=== PATIENT | male | born 1980 | race Caucasian/White ===

== ENCOUNTER 2017-03-18 08:29 | Emergency (ER) | payer OTHER ==
--- NOTE | 2017-03-18 08:45 | EDM.PDOC ---
ED HPI GENERAL MEDICAL PROBLEM - General Chief Complaint: Skin Complaint Stated Complaint: RIGHT MIDDLE FINGER NAIL TORN OFF Time Seen by Provider: 03/18/17 08:44 Source of Information: Reports: Patient - History of Present Illness INITIAL COMMENTS - FREE TEXT/NARRATIVE: HISTORY AND PHYSICAL: History of present illness: [Patient smashed his right third digit prior to , he has not been seen by a medical provider, his nail was lifting today needed like her remove it is just hanging on by a the lateral edge essentially No fever nausea vomiting chills sweats Is not sought medical treatment prior No fever nausea vomiting chills sweats] Review of systems: As per history of present illness and below otherwise all systems reviewed and negative. Past medical history: As per history of present illness and as reviewed below otherwise noncontributory. Surgical history: As per history of present illness and as reviewed below otherwise noncontributory. Social history: No reported history of drug or alcohol abuse. Family history: As per history of present illness and as reviewed below otherwise noncontributory. Physical exam: HEENT: Atraumatic, normocephalic, pupils reactive, negative for conjunctival pallor or scleral icterus, mucous membranes moist, throat clear, neck supple, nontender, trachea midline. Lungs: Clear to auscultation, breath sounds equal bilaterally, chest nontender. Heart: S1S2, regular, negative for clicks, rubs, or JVD. Abdomen: Soft, nondistended, nontender. Negative for masses or hepatosplenomegaly. Negative for costovertebral tenderness. Pelvis: Stable nontender. Genitourinary: Deferred. Rectal: Deferred. Extremities: Atraumatic, negative for cords or calf pain. Neurovascular unremarkable. Neuro: Awake, alert, oriented. Cranial nerves II through XII unremarkable. Cerebellum unremarkable. Motor and sensory unremarkable throughout. Exam nonfocal. Right hand unaffected above the wrist nail was lifting on the third digit her swelling of the distal phalanx mild redness and tenderness no fluctuance, entire limb is neurovascularly intact Diagnostics: [Right third digit ] Therapeutics: [Keflex 500 mg by mouth twice a day #20 no refill follow-up with [facility] Call for an appointment Digital digital block performed 1% lidocaine no epinephrine 2 mL Patient declines any hand intervention he states that he likely will not follow- up however we will give him information for follow-up with Makayla Kirby md Splint applied by nurse Bandaging Neosporin Telfa bandaging ] Impression: [Distal tuft fracture right third digit Closed lesion] Nail removed without complication or complaint Definitive disposition and diagnosis as appropriate pending reevaluation and review of above. R 3rd Finger Pain Score (Numeric/FACES): 7 - Related Data Allergies Allergy/AdvReac Type Severity Reaction Status Date / Time No Known Allergies Allergy Verified 03/18/17 08:39 Home Meds: Home Meds . [No Known Home Meds] 03/18/17 [History] Past Medical History - Past Health History Medical/Surgical History: Denies Medical/Surgical History - Past Surgical History GI Surgical History: Reports: Appendectomy Social & Family History - Family History Family Medical History: Noncontributory - Tobacco Use Smoking Status *Q: Current Every Day Smoker Years of Tobacco use: 10 Packs/Tins Daily: 1 - Caffeine Use Caffeine Use: Reports: Energy Drinks, Soda - Alcohol Use Days Per Week of Alcohol Use: 7 Number of Drinks Per Day: 8 Total Drinks Per Week: 56 - Recreational Drug Use Recreational Drug Use: Yes Recreational Drug Type: Reports: Marijuana/Hashish Recreational Drug Use Frequency: Weekly ED ROS GENERAL - Review of Systems Review Of Systems: ROS reveals no pertinent complaints other than HPI. ED EXAM, SKIN/RASH Exam: See Below Course - Vital Signs Last Recorded V/S: Last Vital Signs Temp 98.1 F 03/18/17 08:37 Pulse 88 03/18/17 08:37 Resp 18 03/18/17 08:37 BP 118/80 03/18/17 08:37 Pulse Ox 100 03/18/17 08:37 - Orders/Labs/Meds Meds: Medications Discontinued Medications Generic Name Dose Route Start Last Admin Trade Name Freq PRN Reason Stop Dose Admin Lidocaine HCl 20 ml 03/18/17 08:54 Xylocaine 1% INJECT 03/18/17 08:55 ONETIME ONE Departure - Departure Time of Disposition: 09:50 Disposition: Home, Self-Care 01 Condition: Good Clinical Impression: Closed fracture of tuft of distal phalanx of finger - Discharge Information Referrals: PCP,None [Primary Care Provider] - Forms: ED Department Discharge Additional Instructions: Medication as prescribed Splint applied by nurse Neosporin Telfa bandaging Follow-up with hand specialist, call number below for appointment to to arrange appropriate follow-up [facility] [address] [place] [address], [address] [place] [address] The following information is given to patients seen in the emergency department who are being discharged to home. This information is to outline your options for follow-up care. We provide all patients seen in our emergency department with a follow-up referral. The need for follow-up, as well as the timing and circumstances, are variable depending upon the specifics of your emergency department visit. If you don't have a primary care physician on staff, we will provide you with a referral. We always advise you to contact your personal physician following an emergency department visit to inform them of the circumstance of the visit and for follow-up with them and/or the need for any referrals to a consulting specialist. The emergency department will also refer you to a specialist when appropriate. This referral assures that you have the opportunity for follow-up care with a specialist. All of these measure are taken in an effort to provide you with optimal care, which includes your follow-up. Under all circumstances we always encourage you to contact your private physician who remains a resource for coordinating your care. When calling for follow-up care, please make the office aware that this follow-up is from your recent emergency room visit. If for any reason you are refused follow-up, please contact the [facility] emergency department at and asked to speak to the emergency department charge nurse.
[2017-03-18] MEDS ORDERED: Lidocaine 1% 20 ML MDV INJECT ONE (08:54)
--- NOTE | 2017-03-18 09:08 | CR ---
Right third digit Clinical history: Trauma Comparison: None Findings: There is a fracture of the distal phalanx with slight oblique orientation to the long axis of the digit. Impression: Fracture of the distal phalangeal tuft
== END 2017-03-18 10:09 | disposition home or self-care (01) ==
LOC: MW.ED 08:29
DX: S62.632A Displaced fracture of distal phalanx of right middle finger, initial encounter for closed fracture (principal); F17.210 Nicotine dependence, cigarettes, uncomplicated; W23.1XXA Caught, crushed, jammed, or pinched between stationary objects, initial encounter
CPT/HCPCS: 11730; 73140-26-F7; 73140-F7; 99283